=== PATIENT | female | born 1995 | race Two or more races ===

== ENCOUNTER 2019-01-07 11:57 | Outpatient (CLI) | payer OTHER | END 2019-01-07 12:04 | disposition home or self-care (01) | LOC: LAB 11:57 | DX: B96.0 Mycoplasma pneumoniae [M. pneumoniae] as the cause of diseases classified elsewhere (principal); R50.9 Fever, unspecified ==

== ENCOUNTER 2020-01-02 14:03 | Emergency (ER) | payer OTHER ==
[~2020-01-02] VITALS: Ht 167.6 cm; Wt 81.6 kg
[2020-01-02] MEDS ORDERED: CRYSELLE-28 TA1 EACH (14:39)
== END 2020-01-02 18:12 | disposition home or self-care (01) ==
LOC: ER 14:03
DX: B33.8 Other specified viral diseases (principal); B96.0 Mycoplasma pneumoniae [M. pneumoniae] as the cause of diseases classified elsewhere